=== PATIENT | male | born 1985 | race Caucasian/White ===

== ENCOUNTER → 2018-12-04 13:37 | Outpatient (CLI) | payer OTHER, SELFPAY ==
--- NOTE | 2018-12-04 | DI.MRI.S_ITS ---
PROCEDURE: MR LUMBAR SPINE WO CON INDICATIONS: PARESTHSIA OF SKIN TECHNIQUE: Noncontrast sagittal T1 spin echo and T2 fast echo, sagittal STIR, axial T1 and T2 fast spin echo through the lumbar spine. In cases with scoliosis, additional coronal T2 fast spin echo may be performed. COMPARISON: [facility], MR, MR THORACIC SPINE WO CON, 12/04/2018, 14:38. [facility], MR, MR CERVICAL SPINE WO CON, 12/04/2018, 14:18. FINDINGS: Image quality: Diagnostic, with note made of motion artifact. Alignment and Curvature: There is normal bony alignment. Bone Marrow: Marrow is of normal overall signal. No acute vertebral body compression fractures. Spinal Cord: Conus medullaris terminates at the T12-L1 level. Visualized cord demonstrates normal signal and size. Paraspinous Soft Tissues: No paravertebral masses. T12-L1: Normal appearance. L1-L2: Normal appearance. L2-L3: Normal appearance. L3-L4: The disc height and disk signal are well-preserved. Mild to moderate disc bulge is seen, which is eccentric to the right, with a right lateral recess/lateral protrusion. There is mild to moderate facet hypertrophy seen. Fluid is seen within the right facet joint. There is moderate right-sided and mild to moderate left-sided neural foraminal narrowing seen. Xbzd-ee-qphdbgdu central canal narrowing is seen. L4-L5: Mild loss of disc height is seen. Loss of disc signal is seen. Gcnj-pr-hadslixo facet hypertrophy is seen. There is moderate bilateral neural foraminal narrowing seen. Lveb-he-xazspaiu central canal narrowing is seen. L5-S1: No significant abnormality is seen. IMPRESSION: At L3-L4, there is a right-sided disc protrusion seen, with associated moderate right-sided neural foraminal narrowing. Moderate bilateral neural foraminal narrowing is seen at L4-L5. Dictated by: Mason Figueroa M.D. on 12/04/2018 at 16:30 Approved by: Mason Figueroa M.D. on 12/04/2018 at 16:34
--- NOTE | 2018-12-04 | DI.MRI.S_ITS ---
PROCEDURE: MR CERVICAL SPINE WO CON INDICATIONS: PARESTHESIA OF SKIN TECHNIQUE: Noncontrast sagittal T1 spin echo and T2 fast spin echo, sagittal STIR, foraminal oblique sagittal T2 fast spin echo, and axial gradient echo or T2 fast spin echo through the cervical spine. COMPARISON: [facility], MR, MR THORACIC SPINE WO CON, 12/04/2018, 14:38. [facility], MR, MR HEAD/BRAIN WO CON, 12/04/2018, 13:55. FINDINGS: Image quality: Excellent. Alignment and Curvature: There is normal bony alignment. Bone Marrow: Marrow demonstrates normal overall signal. Spinal Cord: Visualized spinal cord has normal size and signal. No cerebellar tonsillar herniation. Paraspinous Soft Tissues: No paravertebral masses. Prevertebral soft tissues are normal in thickness. C2-C3: Normal appearance. C3-C4: No significant abnormality is seen. C4-C5: The disc height and disc signal are relatively well-preserved. Mild to moderate disc osteophyte complex is seen, which is eccentric to the left. There is mild to moderate facet hypertrophy seen. There is moderate left-sided and no significant right-sided neural foraminal narrowing seen. No significant central canal narrowing is seen. C5-C6: The disc height and disc signal are relatively well-preserved. A mild degree of generalized disc osteophyte complex is seen. Moderate bilateral neural foraminal narrowing is seen. No significant central canal narrowing is seen. C6-C7: The disc height and disc signal are relatively well-preserved. A mild degree of generalized disc osteophyte complex is seen. There is mild left-sided and no significant right-sided neural foraminal narrowing seen. C7-T1: No significant abnormality is seen. IMPRESSION: Cervical spine degenerative changes are seen, which are overall most prominent at C5-C6 level, where there is moderate bilateral neural foraminal narrowing seen. Dictated by: Mason Figueroa M.D. on 12/04/2018 at 15:04 Approved by: Mason Figueroa M.D. on 12/04/2018 at 15:07
--- NOTE | 2018-12-04 | DI.MRI.S_ITS ---
PROCEDURE: MR THORACIC SPINE WO CON INDICATIONS: PARESTHESIA OF SKIN TECHNIQUE: Noncontrast sagittal T1 spine echo and T2 fast spin echo, sagittal STIR, axial T1 and T2 fast spin echo through the thoracic spine. COMPARISON: [facility], MR, MR CERVICAL SPINE WO CON, 12/04/2018, 14:18. [facility], MR, MR HEAD/BRAIN WO CON, 12/04/2018, 13:55. FINDINGS: Image quality: Excellent. Alignment and Curvature: There is normal bony alignment. Bone Marrow: Marrow is of normal overall signal. No acute vertebral body compression fractures. Spinal Cord: Visualized spinal cord is normal in size and signal. Paraspinous Soft Tissues: No paravertebral masses. Miscellaneous: On axial images, central canal and foramina appear widely patent at all scanned levels. IMPRESSION: No significant thoracic spine MRI abnormality is seen. No imaging explanation is found for this patient's presenting symptoms. Dictated by: Mason Figueroa M.D. on 12/04/2018 at 15:13 Approved by: Mason Figueroa M.D. on 12/04/2018 at 15:14
--- NOTE | 2018-12-04 | DI.MRI.S_ITS ---
PROCEDURE: MR HEAD/BRAIN WO CON INDICATIONS: PARESTHESIA OF SKIN TECHNIQUE: Noncontrast axial T1 spin echo, axial T2 fast spin echo, sagittal and axial FLAIR, coronal T2 fast spin echo, axial gradient echo, axial diffusion and ADC through the brain. COMPARISON: None. FINDINGS: Image quality: Excellent. CSF Spaces: Basal cisterns are patent. No extra-axial fluid collections. Ventricles are normal in size and shape. Brain: No intracranial masses or hemorrhage. [place]/white matter interface is normal. Brainstem appears normal. Diffusion-weighted images demonstrate no acute ischemic insult. No chronic ischemic insults. Normal intravascular flow voids are present. Skull and face: Calvarium has normal marrow signal. Orbits appear normal. Sinuses: Sinuses and mastoids are clear. IMPRESSION: Negative brain MRI. No explanation for skin paresthesias. Dictated by: Kelby Miranda M.D. on 12/04/2018 at 15:33 Approved by: Kelby Miranda M.D. on 12/04/2018 at 16:05
== END ==
PROVIDERS: PCP General Practice; Referring Provider Family Medicine; Visit Provider General Practice
DX: R20.2 Paresthesia of skin (principal); M47.812 Spondylosis without myelopathy or radiculopathy, cervical region; M48.02 Spinal stenosis, cervical region; M51.26 Other intervertebral disc displacement, lumbar region; M48.061 Spinal stenosis, lumbar region without neurogenic claudication
CPT/HCPCS: 70551; 72141; 72146; 72148

== ENCOUNTER → 2020-03-17 11:57 | Outpatient (CLI) | payer OTHER, SELFPAY ==
--- NOTE | 2020-03-17 | DI.US.S_ITS ---
PROCEDURE: US RENAL COMPLETE INDICATIONS: Chronic kidney disease stage 2 mild TECHNIQUE: Real-time scanning was performed of the kidneys and bladder, with image documentation. COMPARISON: None. FINDINGS: Kidneys: Kidneys are normal in size. Right kidney measures 12.9 cm long; left kidney measures 11.9 cm long. Right renal cortical thickness is 1.4 cm; left renal cortical thickness is 1.7 cm. Renal cortical echotexture is normal. No hydronephrosis or nephrolithiasis. No suspicious solid mass lesions. Bladder: Pre-void bladder volume is 414 mL. Post-void residual is 38 mL. Pre-void images demonstrate no intraluminal masses or stones. On pre-void images, both of the ureteral jets are noted with color Doppler interrogation. (Of note, ureteral jets may not be detectable in up to 25% of cases due to insufficient differences in specific gravity between ureteral and bladder urine). Miscellaneous: No free pelvic fluid. IMPRESSION: No hydronephrosis. Postvoid residual measures 38 cc. Dictated by: Leonard Young M.D. on 03/17/2020 at 16:29 Approved by: Leonard Young M.D. on 03/17/2020 at 16:30
== END ==
PROVIDERS: PCP General Practice; Referring Provider Internal Medicine Nephrology; Visit Provider Internal Medicine Nephrology
DX: N18.2 Chronic kidney disease, stage 2 (mild) (principal)
CPT/HCPCS: 76770

== ENCOUNTER 2024-12-13 19:25 | Emergency (ER) | payer OTHER, SELFPAY ==
[2024-12-13 19:35] VITALS: BP 171/99; PULSE 86; RESP 16; TEMP 36.8; O2SAT 98; BMI 23.1
--- NOTE | 2024-12-13 20:01 | DI.CT.S_ITS ---
PROCEDURE: CT HEAD/BRAIN WO CON INDICATIONS: increasing weakness in all 4 extremities TECHNIQUE: Noncontrast 4.5 mm thick angled axial sections acquired from the foramen magnum to the vertex, with coronal and sagittal reformats. For radiation dose reduction, the following was used: automated exposure control, adjustment of mA and/or kV according to patient size. COMPARISON: None. FINDINGS: Image quality: Diagnostic. CSF spaces: Basal cisterns are patent. No extra-axial fluid collections. The ventricles are symmetric in size and shape. Brain: No intracranial bleeds or mass effect. There is cerebral volume loss, with resultant ventricular and sulcal prominence. There are periventricular and deep white matter chronic small vessel ischemic changes. There is intracranial internal carotid artery atherosclerosis. Skull and face: Calvarium and visualized facial bones appear intact, without suspicious lesions. Sinuses: Visualized sinuses and mastoids are clear. IMPRESSION: No acute intracranial pathology. Approved by: Zita Diamond M.D.,Ph.D. on 12/13/2024 at 22:18
--- NOTE | 2024-12-13 20:01 | DI.CT.S_ITS ---
PROCEDURE: CT CERVICAL SPINE WO CON INDICATIONS: increasing weakness in all 4 extremities TECHNIQUE: Noncontrast 3 mm thick sections acquired from the skull base to the T4 level. Sagittal and coronal reformats were then constructed. For radiation dose reduction, the following was used: automated exposure control, adjustment of mA and/or kV according to patient size. COMPARISON: None. FINDINGS: Image quality: Excellent. Bones: No fractures or dislocations. Visualized superior ribs are intact. Soft tissues: Prevertebral soft tissues are normal in thickness. No paravertebral hematomas. No apical pneumothoraces. IMPRESSION: No acute displaced fracture or traumatic subluxation. Approved by: Zita Diamond M.D.,Ph.D. on 12/13/2024 at 22:20
--- NOTE | 2024-12-13 20:01 | DI.CT.S_ITS ---
PROCEDURE: CT THORACIC SPINE WO CON INDICATIONS: increasing weakness in all 4 extremities TECHNIQUE: Noncontrast 3 mm thick sections acquired through the region of interest in the thoracic spine. Sagittal and coronal reformats were then constructed. For radiation dose reduction, the following was used: automated exposure control. COMPARISON: None. FINDINGS: Image quality: Diagnostic Bones: There is normal overall bony alignment. No acute vertebral body compression fractures. No suspicious sclerotic or lytic bony lesions. Central spinal canal is of normal overall caliber. Soft tissues: No paravertebral masses or hematomas. Visualized posteromedial lungs appear clear. IMPRESSION: No acute fracture or traumatic subluxation. Approved by: Zita Diamond M.D.,Ph.D. on 12/13/2024 at 22:22
[2024-12-13 20:43] LABS: Add Manual Diff / Slide Review NO; Hematocrit 44.5 % (41-53); Hemoglobin 15.5 g/dL (13.5-17.5); Lymphocytes Absolute Auto 4100 /uL (1100-4500); Mean Corpuscular HGB Conc 34.8 % (30-36); Mean Corpuscular Hemoglobin 30.2 PG (26-34); Mean Corpuscular Volume 86.7 fL (80-100); Platelet Count 147 X10^3/uL (150-400)
[2024-12-13 20:55] LABS: Alanine Aminotransferase 65 IU/L (<50); Albumin 4.6 g/dL (3.5-5.0); Albumin Globulin Ratio 1.7 (1.0-2.8); Alkaline Phosphatase 83 U/L (38-126); Blood Urea Nitrogen 17 mg/dL (9-20); Calcium 9.2 mg/dL (8.4-10.2); Carbon Dioxide 29 mmol/L (22-32); Chloride 101 mmol/L (98-107); Estimated Glomerular Filt Rate > 60 mL/min (>60); Globulin 2.7 g/dL (1.7-4.1); Glucose 96 mg/dL (70-99); HEMOLYSIS 17 (0-50); Potassium 4.2 mmol/L (3.4-5.1); Sodium 138 mmol/L (137-145); Total Protein 7.3 g/dL (6.3-8.2)
[2024-12-13 21:45] VITALS: BP 136/85; PULSE 65; O2SAT 98
[2024-12-13 22:00] VITALS: BP 133/86; PULSE 64; O2SAT 98
[2024-12-13 22:30] VITALS: BP 127/89; PULSE 61; O2SAT 97
[2024-12-13 23:00] VITALS: BP 133/85; PULSE 65; O2SAT 97
[2024-12-13 23:30] VITALS: BP 133/89; PULSE 65; RESP 16; O2SAT 98
--- NOTE | 2024-12-13 23:38 | ED_ITS ---
HPI - Weakness General Chief complaint: Weakness Stated complaint: Severe weakness in arms/legs, pain Time Seen by Provider: 12/13/24 19:57 Source: patient Mode of arrival: Ambulatory History of Present Illness HPI Narrative: 39-year-old male without any significant past medical history presents to the emergency department from home for evaluation of diffuse weakness and pain. States that symptoms started 9 days ago started to his right arm, he states that over the past week he started developing weakness to his extremities he denies however any difficulty walking, denies any bowel or urinary incontinence denies any saddle paresthesias. He states that he has pain specifically in his thoracic back, states that he was seen at outside hospital yesterday for the same, he had a negative workup but was told that he may need an MRI in the future he presented today requesting this. He states that he followed up with his primary care and stated he could only get it until next week which is why he came in. He denies any trauma or falls denies any other symptoms at this time. Related Data Previous Rx's ?Medication ?Instructions ?Recorded diazepam 5 mg tablet (Valium) 5 mg PO BEDTIME PRN pain 1 week #7 12/14/24 tabs methylprednisolone 4 mg tablets in See Rx Instructions PO .COMPLEX 12/14/24 a dose pack (Medrol (Gurwinder)) #21 ea Allergies Allergy/AdvReac Type Severity Reaction Status Date / Time No Known Drug Allergies Allergy Verified 12/13/24 23:39 Review of Systems Review of Systems Narrative: General: Positive weakness to extremity Denies fever, chills, weight loss HEENT: Denies headache, eye drainage, eye irritation, head trauma, sore throat, voice change Cardiovascular: Denies any chest pain, palpitations, tachycardia Respiratory: Denies any shortness of breath, cough, wheeze, stridor GI/: Denies any abdominal pain, nausea, vomiting, diarrhea, bright red blood per rectum, melanotic stools, urinary frequency, urinary retention, dysuria, hematuria MSK: Positive right arm pain thoracic pain Skin: Denies any rashes, lesions, discoloration Neuro: Denies any headache, lightheadedness, dizziness, fainting, weakness Psych: Denies SI/HI Patient History Smoking Status: Never smoker Exam Narrative Exam Narrative: General: Cooperative, well-developed, not in acute distress HEENT: Normocephalic, atraumatic, PERRLA, normal sclera, eyelids normal Neck: Active full range of motion, atraumatic Chest: Normal to inspection, negative crepitus, no overlying erythema ecchymosis Respiratory: Normal respiratory effort, not in acute respiratory distress, clear to auscultation bilaterally negative cough, wheeze, tachypnea, rhonchi, rales Cardiology: Regular rate rhythm negative gallop, murmur, rubs GI/: No tenderness to palpation, soft, non rigid, normal to inspection, exam deferred MSK: Full active range of motion in all 4 extremities, atraumatic, no tenderness to palpation of any bony prominences, patient is able to stand bear weight ambulate unassisted here in the emergency department Skin: No rashes or lesions noted Neuro: 5/5 strength to bilateral upper and lower extremities Alert awake oriented x3, moves all 4 extremities spontaneously, cranial nerves intact, able to answer all questions appropriately follows commands appropriately Psych: Cooperative, negative suicidal or homicidal ideations Initial Vital Signs Initial Vital Signs: Vital Signs Temperature 98.3 F 12/13/24 19:35 Pulse Rate 86 12/13/24 19:35 Respiratory Rate 16 12/13/24 19:35 Blood Pressure 171/99 H 12/13/24 19:35 Pulse Oximetry 98 12/13/24 19:35 Oxygen Delivery Method Room Air 12/13/24 19:35 Course Orders Ordered: ED Orders 12/13/24 20:01 CT cervical spine wo con Stat CT head/brain wo con Stat CT thoracic spine wo con Stat 12/13/24 20:30 CBC Auto Diff [Complete Blood Count AUTO DIFF] Stat CMP [Comprehensive Metabolic Panel] Stat CRP [C-Reactive Protein Quant] Stat Vital Signs Vital signs: Vital Signs - 8 hr 12/13/24 19:35 12/13/24 21:45 12/13/24 21:45 Temperature 98.3 F Pulse Rate 86 65 Respiratory Rate 16 Blood Pressure 171/99 H 136/85 Pulse Oximetry 98 98 Oxygen Delivery Method Room Air 12/13/24 22:00 12/13/24 22:00 12/13/24 22:30 Temperature Pulse Rate 64 61 Respiratory Rate Blood Pressure 133/86 Pulse Oximetry 98 97 Oxygen Delivery Method 12/13/24 22:30 12/13/24 23:00 12/13/24 23:00 Temperature Pulse Rate 65 Respiratory Rate Blood Pressure 127/89 133/85 Pulse Oximetry 97 Oxygen Delivery Method MDM - Weakness Lab Data 12/13/24 20:30 12/13/24 20:30 Labs: Lab Results 12/13/24 Range/Units 20:30 WBC 6.9 (4.5-11.0) X10^3/uL RBC 5.13 (4.5-5.9) X10^6/uL Hgb 15.5 (13.5-17.5) g/dL Hct 44.5 (41-53) % MCV 86.7 (80-100) fL MCH 30.2 (26-34) PG MCHC 34.8 (30-36) % RDW 13.1 (11.6-14.8) % Plt Count 147 L (150-400) X10^3/uL Neut % (Auto) 31.3 L (50-75) % Lymph % (Auto) 59.1 H (25-40) % [place] % (Auto) 7.9 (3-14) % Eos % (Auto) 0.8 L (2-4) % Baso % (Auto) 0.9 (0-2) % Neut # (Auto) 2200 (5889-1755) /uL Lymph # (Auto) 4100 (7755-5068) /uL [place] # (Auto) 500 (0-900) /uL Eos # (Auto) 100 (0-450) /uL Baso # (Auto) 100 (0-100) /uL Sodium 138 (137-145) mmol/L Potassium 4.2 (3.4-5.1) mmol/L Chloride 101 (98-107) mmol/L Carbon Dioxide 29 (22-32) mmol/L BUN 17 (9-20) mg/dL Creatinine 1.11 (0.66-1.25) mg/dL Estimated GFR > 60 (>60) mL/min BUN/Creatinine Ratio 15.3 (6-22) Glucose 96 (70-99) mg/dL Calcium 9.2 (8.4-10.2) mg/dL Total Bilirubin 0.8 (0.2-1.3) mg/dL AST 45 (17-59) IU/L ALT 65 H (<50) IU/L Alkaline Phosphatase 83 (38-126) U/L C-Reactive Protein < 0.5 (<1.0) mg/dL Total Protein 7.3 (6.3-8.2) g/dL Albumin 4.6 (3.5-5.0) g/dL Globulin 2.7 (1.7-4.1) g/dL Albumin/Globulin Ratio 1.7 (1.0-2.8) MDM Narrative Medical decision making narrative: 39-year-old male without any pertinent past medical history presenting from home for evaluation of pain to his thoracic back right arm states that he started developing some weakness to his extremities he was able to stand bear weight ambulate here in the emergency department, he denies any red flags for cauda equina. He was seen at outside hospital had a workup and was told that he needed an MRI and follow up with the primary care. States that he did follow up with his primary care but was told that MRI would take a few days/week so came in requesting this. Patient had CTs of his head cervical and thoracic spine without any acute findings. He has 5/5 strength on my exam. Review of outside records show that patient is already on gabapentin and pregabalin for restless leg syndrome. Patient has normotensive pressures, there is no obvious enlargement of aorta to suggest dissection and/or aneurysm. His symptoms more likely secondary to neuropathy, I agree that patient needs a MRI and further workup in an outpatient setting to determine the cause of his symptoms, in the meantime we discussed symptomatic relief/treatment and follow up with the primary care doctor. He was given a dose of medication here and sent home with symptomatic treatment. He was given strict return precautions he verbalized understanding of this and agrees to being discharged home with outpatient follow up Discharge Plan Departure Patient Disposition: Home Clinical Impression: Back pain, thoracic, Arm pain Activity Restrictions/Additional Instructions: Please follow up with your primary care doctor and orthopedic surgery in outpatient setting Please read the discharge instructions sheet carefully and bring all papers to all doctor follow-up visits, as it may contain information that your doctor may want to see. Disease processes change and evolve, if your symptoms worsen or if you develop any new symptoms that are concerning to you please return for evaluation. Your evaluation today does not show any evidence of any life- threatening/serious illnesses requiring admission to the hospital or surgery. Please follow-up with your doctor for re-evaluation in approximately 1 day. Seek immediate medical attention for any worrisome symptoms. *If you do not have a primary care provider please contact the [facility] Resource line at [phone]. They will ask some questions about your medical history and help get you set up with a doctor in the community. Prescriptions: New diazepam [Valium] 5 mg tablet 5 mg PO BEDTIME PRN (Reason: pain) 7 Days Qty: 7 0RF methylprednisolone [Medrol (Gurwinder)] 4 mg tablets,dose pack See Rx Instructions .ROUTE .COMPLEX Qty: 21 0RF Rx Instructions: for 6 days Referrals: Kasi Navaror MD [Primary Care Provider, Family Practice] Stand Alone Forms: Patient Portal/API
[2024-12-14 00:25] VITALS: PULSE 75; O2SAT 98
[2024-12-14 00:26] VITALS: BP 129/88; PULSE 75; RESP 16; O2SAT 97
== END 2024-12-14 00:33 | disposition home or self-care (01) ==
PROVIDERS: Emergency Medicine; Emergency Provider Student in an Organized Health Care Education/Training Program; PCP General Practice
DX: M54.6 Pain in thoracic spine (principal); M79.601 Pain in right arm; R53.1 Weakness
CPT/HCPCS: 36415; 70450; 72125; 72128; 80053; 85025; 86140; 99283; 99284